=== PATIENT | female | born 1950 | race Caucasian/White ===

== ENCOUNTER 2017-06-24 15:43 | Inpatient (IN) | payer OTHER, MEDICARE ==
--- OUTSIDE RECORDS SUMMARY | 2017-06-24 16:07 | XMS REPORT ---
:1950 External Reference #:[id number] Author Organization [facility] Address [address] [place] [address] Phone [phone] Care Team Providers Name Role Phone Valentin Arango M.D. 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 Cigarette Use Never Smoked Cigarettes Allergies, Adverse Reactions, Alerts Date Description Reaction Status Severity Comments 04/03/2015 Bee Sting active anaphlactic, yellow jacket 04/03/2015 Penicillin active hives Medications Medication Date Status Form Strength Qnty SIG Indications Ordering Provider Clindagel 11/04 Active Gel 1% 30G apply to L03.319 affected Arango, area twice M.D. 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 Nba, ben Eastman.Con immediately to md office for administrat ion unless administere d at pharmacy Levothyroxine Active Tablets 100mcg 1 by mouth Unknown Sodium /0000 every day Cetirizine HCL Active Tablets 10mg 1 by mouth Unknown /0000 every day prn Immunizations CPT Code Status Date Vaccine Lot # 57043 Given 03/10/2017 [place] [address] Given 11/05/2015 Influenza Virus Vaccine, Quadrivalent, 3 Yr > [id number] Quad, Preserv Free 12210 Given 04/03/2015 Tdap (Adacel) [id number] Vital Signs Date Vital Result Comment 06/24/2017 Weight 137.00 lb Weight in kg's 62.143 BP Systolic 130 mmHg BP Diastolic 80 mmHg Heart Rate 80 /min Body Temperature 98.5 F Respiratory Rate 16 /min O2 % BldC Oximetry 97 % 11/05/2015 Weight 142.00 lb Weight in kg's 64.411 BP Systolic 132 mmHg BP Diastolic 75 mmHg Heart Rate 84 /min Body Temperature 99.5 F 09/23/2015 Weight 140.00 lb Weight in kg's 63.504 BP Systolic 125 mmHg BP Diastolic 77 mmHg Heart Rate 88 /min 09/19/2015 Weight 142.00 lb Weight in kg's 64.411 BP Systolic 164 mmHg BP Diastolic 85 mmHg Heart Rate 80 /min O2 % BldC Oximetry 97 % 05/08/2015 Weight 135.00 lb Weight in kg's 61.236 BP Systolic 128 mmHg BP Diastolic 76 mmHg Heart Rate 76 /min 04/03/2015 Weight 134.00 lb Weight in kg's 60.782 BP Systolic 140 mmHg BP Diastolic 90 mmHg Heart Rate 68 /min Height 61 inches 5'1" BMI (Body Mass Index) 25.3 kg/m2 Results Test Date Test Result H/L Range Note Laboratory test finding 05/08/2015 Cytology SEE RESULT BELOW 1 HPV Rna Ww/Reflex Genotype Negative Negative 2 Laboratory test finding 04/03/2015 TSH (Thyroid Stim Horm) 2.91 ?IU/mL 0.34-5.60 CBC Auto Diff 04/03/2015 White Blood Count 5.2 10^3/uL 3.5-10.8 Red Blood Count 4.74 10^6/uL 4.0-5.4 Hemoglobin 14.2 g/dL 12.0-16.0 Hematocrit 44 % 35-47 Mean Corpuscular Volume 94 fL 80-97 Mean Corpuscular Hemoglobin 30 pg 27-31 Mean Corpuscular HGB Conc 32 g/dL 31-36 Red Cell Distribution Width 14 % 10.5-15 Platelet Count 239 10^3/uL 150-450 Mean Platelet Volume 9 um3 7.4-10.4 Abs Neutrophils 3.1 10^3/uL 1.5-7.7 Abs Lymphocytes 1.7 10^3/uL 1.0-4.8 Abs Monocytes 0.3 10^3/uL 0-0.8 Abs Eosinophils 0.1 10^3/uL 0-0.6 Abs Basophils 0 10^3/uL 0-0.2 Abs Nucleated RBC 0 10^3/uL Granulocyte % 59.2 % 38-83 Lymphocyte % 33.4 % 25-47 Monocyte % 4.8 % 1-9 Eosinophil % 1.9 % 0-6 Basophil % 0.7 % 0-2 Nucleated Red Blood Cells % 0 Comp Metabolic Panel 04/03/2015 Sodium 137 mmol/L 133-145 Potassium 3.9 mmol/L 3.5-5.0 Chloride 102 mmol/L 101-111 Co2 Carbon Dioxide 28 mmol/L 22-32 Anion Gap 7 mmol/L 2-11 Glucose 85 mg/dL 70-100 Blood Urea Nitrogen 18 mg/dL 6-24 Creatinine 0.99 mg/dL High 0.51-0.95 BUN/Creatinine Ratio 18.2 8-20 Calcium 9.9 mg/dL 8.6-10.3 Total Protein 6.9 g/dL 6.4-8.9 Albumin 4.5 g/dL 3.2-5.2 Globulin 2.4 g/dL 2-4 Albumin/Globulin Ratio 1.9 1-3 Total Bilirubin 0.50 mg/dL 0.2-1.0 Alkaline Phosphatase 82 U/L 34-104 Alt 18 U/L 7-52 Ast 23 U/L 13-39 Egfr Non- 56.7 >60 Egfr 72.9 >60 3 Laboratory test finding 04/03/2015 T3 Total 0.78 ng/mL Low 0.87-1.78 Free T4 (Free Thyroxine) 0.87 ng/dL 0.61-1.12 1 SEE RESULT BELOW Name: LUDWIG HERNÁNDEZ : [address]: Valentin Arango MD Acct: [id number] Unit: [id number] AGE: 65 Location: [facility] Re05/08/15 SEX: F Status: REG REF SPEC: [id number] STONEY: 05/08/15-[address] [facility] [address]: Valentin Arango MD REQ: [id number] RECD: 05/08/15 STATUS: SOUT _ ORDERED: IMAGE ANALYSIS, HPV/Thin Prep, HPV 16/18 GENE FINAL DIAGNOSIS Negative for Intraepithelial lesion or Malignancy A. Ectocervical/Endocervical Specimen Adequacy: Satisfactory of evaluation Transformation zone component cannot be definitely identified due to presence of atrophy or other hormonal changes Patient Information: HPV: High risk HPV RNA testing regardless of pap results. HPV 16/18 Genotype for HPV pos Actual Specimen Date: 05/08/15 Post Menopausal?: Y Date Time Test Result Flag (u) Normal Range 05/08/15 1517 HPV RNA RFLX GE Negative Negative The high-risk HPV types detected by the assay include: 16, 18, 31, 33, 35, 39, 45, 51, 52, 56, 58, 59, 66, and 68. Signed (signature on file) GREG Craig([facility]) 05/08 1523 This Pap test was evaluated with the assistance of the [employer] Group[employer] Test Imaging System. Due to cytologic findings at the veneer clipper microscope, comprehensive manual rescreening by a Facilities Engineer may be required. The Pap Smear is a screening test designed to aid in the detection of premalignant and malignant conditions of the uterine cervix. It is not a diagnostic procedure and should not be used as the sole means of detecting cervical cancer. Both false- positive and false- negative reports do occur. Depending on your risk status, a Pap smear should be obtained and evaluated every 1-3 years. END OF REPORT * ML=Testing performed at Main Lab DEPARTMENT OF PATHOLOGY, [address] [place] [address] Amos Guerra M.D. Director [facility] # [id number] 2 The high-risk HPV types detected by the assay include: 16, 18, 31, 33, 35, 39, 45, 51, 52, 56, 58, 59, 66, and 68. 3 Because ethnic data is not always readily available, this report includes an eGFR for both -Americans and non- Americans. The National Kidney Disease Education Program (NKDEP) does not endorse the use of the MDRD equation for patients that are not between the ages of 18 and 70, are , have extremes of body size, muscle mass, or nutritional status, or are non- or non-. According to the National Kidney Foundation, irrespective of diagnosis, the stage of the disease is based on the level of kidney function: Stage Description GFR(mL/min/1.73 m(2)) 1 Kidney damage with normal or decreased GFR 90 2 Kidney damage with mild decrease in GFR 60-89 3 Moderate decrease in GFR 30-59 4 Severe decrease in GFR 15-29 5 Kidney failure <15 (or dialysis) Procedures Date CPT Code Description Status 09/23/2015 61973 Removal-Impacted Cerumen Completed Encounters Type Date Location Provider CPT E/M Dx Office Visit 11/05/2015 2:30p Main Office Valentin Arango M.D. 75994 L03.319 Z23 Office Visit 09/19/2015 9:15a [place] [address] H61.22 H81.01 Office Visit 05/08/2015 9:30a Main Office Valentin Arango M.D. 96656 Z12.4 E03.9 Office Visit 04/03/2015 10:45a Main Office Valentin Arango M.D. 89653 E03.9 Z23 Plan of Care 06/24/2017 - DENEEN Alvarado52 HeadacheComments:2 days of worsening severe SAMUELS with bad neck stiffness.She has no fever, but reportedly she does not get fevers.Given that she is not severely ill or septic as well as being on antibiotics for several days she is less likely to have bacterial meningitis. Aseptic or Lyme meningitis seems more likely especially given her recent pharyngitis. Still, with clinical concern for meningitis at all we need an ED consult.
[2017-06-24 19:03] LABS: ABS Basophils 0 10^3/ul (0-0.2); ABS Eosinophils 0 10^3/ul (0-0.6); ABS Lymphocytes 0.8 10^3/ul (1.0-4.8); ABS Monocytes 0.8 10^3/ul (0-0.8); ABS Nucleated RBC 0 10^3/ul; Eosinophil % 0 % (0-6); Hematocrit 43 % (35-47); Hemoglobin 14.2 g/dl (12.0-16.0); Lymphocyte % 5.6 % (25-47); Mean Corpuscular HGB Conc 33 g/dl (31-36); Mean Corpuscular Hemoglobin 29 pg (27-31); Mean Corpuscular Volume 88 fL (80-97); Mean Platelet Volume 7.7 um3 (7.4-10.4); Nucleated Red Blood Cells % 0; Platelet Count 223 10^3/ul (150-450); Red Blood Count 4.87 10^6/ul (4.0-5.4); Red Cell Distribution Width 13 % (10.5-15); White Blood Count 13.6 10^3/ul (3.5-10.8)
[2017-06-24 19:27] LABS: EGFR Non-African American 68.8 (>60)
--- NOTE | 2017-06-24 21:30 | RAD ---
INDICATION: Headache COMPARISON: None TECHNIQUE: Noncontrast axial source images were acquired from the skull base to the vertex. FINDINGS: Ventricles/sulci: The ventricles and cisterns are normal in size and configuration for age. Brain parenchyma: There is no focal parenchymal finding, evidence of intracranial mass, or intracranial mass effect. Intracranial hemorrhage:None. Extra-axial spaces: There are no abnormal extra axial fluid collections or evidence of extra-axial mass. Calvarium: There is no calvarial fracture or other calvarial abnormality. Scalp: There is no evidence of scalp or extracalvarial soft tissue abnormality. Paranasal sinuses/mastoid: The paranasal sinuses and mastoid air cells are clear. Other: None. IMPRESSION: NO ACUTE INTRACRANIAL FINDINGS
[2017-06-24] MEDS ORDERED: Lidocaine 2% EPI 1:200000 MPF*10-20 ML VIAL ONE (22:57)
[2017-06-24] MEDS ORDERED: Acetaminophen TAB* 325 MG PO ONE (23:17)
[2017-06-24] MEDS ORDERED: Vancomycin(*) 1,000 MG in NS 0.9% 250 ML* 250 ML IVPB ONE (23:44)
[2017-06-24] MEDS ORDERED: cefTRIAXone(*) 2 GM in NS 0.9% 100 ML* 100 ML IVPB ONE (23:45)
--- NOTE | 2017-06-25 00:25 | HP ---
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 She did not really improve and in fact was gradually worsening with the onset Tuesday of malaise & fatigue. Tuesday she began having a headache progressing to include posterior neck pain with movement Tuesday for which she took 6 doses of clindamycin 150mg Q6H. Despite this she began developing F/C, nausea with dry heaves, & decreased appetite prompting her to present for evaluation which has revealed CSF with WBCs of >1000, a low glucose of 33, and elevated protein most consistent with partially treated bacterial meningitis. She was initiated on IV vancomycin, ceftriaxone, & acylovir while cultures grow. 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 FamHx: Mother: alive at 95 with end-stage dementia; Father: passed at 84 2nd unknown cause ROS: as above, otherwise reviewed and all were negative vitals: Vital Signs Temp 38.5 C 06/25/17 03:18 Pulse 70 06/25/17 03:18 Resp 16 06/25/17 03:18 BP 133/74 06/25/17 03:18 Pulse Ox 96 06/25/17 03:18 Intake & Output 06/24/17 06/24/17 06/25/17 11:59 23:59 11:59 Output Total 800 Balance -800 Weight 62.142 kg 59.92 kg Output: Urine 800 Constitutional: NAD, normally developed, well-nourished white female HEENM: atraumatic; sclera/conjunctiva: anicteric/clear; hearing: clinically intact; oropharynx: clear, mucosa moist Neck: soft tissue: positive nuchal rigidity; thyroid: surgically absent Pulmonary: clear to auscultation bilaterally, good aeration, no accessory muscle use CV: RR/RR, normal S1S2, no carotid bruit, no jugular venous distention, 2+ B DP/ PT, no edema Abdominal: soft, non-distended, non-tender, no rebound/guarding/rigidity, normoactive bowel sounds, no hepatosplenomegaly or masses, no costovertebral angle tenderness Musculoskeletal: general: grossly intact; gait: stable Integumental: normal appearance and texture of exposed skin Psychiatric orientation: AA&O to PPS affect: calm mood: cooperative eye contact: good content: reliable responses: timely insight: fair Testing: Lab Results 06/24/17 06/24/17 06/24/17 Range/Units 18:46 18:46 18:47 WBC 13.6 H (3.5-10.8) 10^3/ul RBC 4.87 (4.0-5.4) 10^6/ul Hgb 14.2 (12.0-16.0) g/dl Hct 43 (35-47) % MCV 88 (80-97) fL MCH 29 (27-31) pg MCHC 33 (31-36) g/dl RDW 13 (10.5-15) % Plt Count 223 (150-450) 10^3/ul MPV 7.7 (7.4-10.4) um3 Neut % (Auto) 88.5 H (38-83) % Lymph % (Auto) 5.6 L (25-47) % Piute % (Auto) 5.7 (0-7) % Eos % (Auto) 0 (0-6) % Baso % (Auto) 0.2 (0-2) % Absolute Neuts (auto) 12.0 H (1.5-7.7) 10^3/ul Absolute Lymphs (auto) 0.8 L (1.0-4.8) 10^3/ul Absolute Monos (auto) 0.8 (0-0.8) 10^3/ul Absolute Eos (auto) 0 (0-0.6) 10^3/ul Absolute Basos (auto) 0 (0-0.2) 10^3/ul Absolute Nucleated RBC 0 10^3/ul Nucleated RBC % 0 Sodium 129 L (139-145) mmol/L Potassium 3.7 (3.5-5.0) mmol/L Chloride 93 L (101-111) mmol/L Carbon Dioxide 26 (22-32) mmol/L Anion Gap 10 (2-11) mmol/L BUN 13 (6-24) mg/dL Creatinine 0.83 (0.51-0.95) mg/dL Est GFR ( Amer) 88.5 (>60) Est GFR (Non-Af Amer) 68.8 (>60) BUN/Creatinine Ratio 15.7 (8-20) Glucose 135 H (70-100) mg/dL Lactic Acid 1.1 (0.5-2.0) mmol/L Calcium 10.0 (8.6-10.3) mg/dL Total Bilirubin 1.30 H (0.2-1.0) mg/dL AST 18 (13-39) U/L ALT 15 (7-52) U/L Alkaline Phosphatase 86 (34-104) U/L C-Reactive Protein 109.73 H (< 5.00) mg/L Total Protein 8.6 (6.4-8.9) g/dL Albumin 4.7 (3.2-5.2) g/dL Globulin 3.9 (2-4) g/dL Albumin/Globulin Ratio 1.2 (1-3) Fluid Source Fluid Volume mL Fluid Color Fluid Appearance Fluid WBC /mcL Fluid RBC /mcL Fluid Tot Cell Count Fluid Neutrophils % Fluid Lymphocytes % Fluid Cell Count Rvw By CSF Cell Count Tube # CSF Glucose (40-70) mg/dL CSF Total Protein (15-45) mg/dL Influenza A (Rapid) (Negative) Influenza B (Rapid) (Negative) 06/25/17 06/25/17 06/25/17 Range/Units 00:47 00:47 01:21 WBC (3.5-10.8) 10^3/ul RBC (4.0-5.4) 10^6/ul Hgb (12.0-16.0) g/dl Hct (35-47) % MCV (80-97) fL MCH (27-31) pg MCHC (31-36) g/dl RDW (10.5-15) % Plt Count (150-450) 10^3/ul MPV (7.4-10.4) um3 Neut % (Auto) (38-83) % Lymph % (Auto) (25-47) % Piute % (Auto) (0-7) % Eos % (Auto) (0-6) % Baso % (Auto) (0-2) % Absolute Neuts (auto) (1.5-7.7) 10^3/ul Absolute Lymphs (auto) (1.0-4.8) 10^3/ul Absolute Monos (auto) (0-0.8) 10^3/ul Absolute Eos (auto) (0-0.6) 10^3/ul Absolute Basos (auto) (0-0.2) 10^3/ul Absolute Nucleated RBC 10^3/ul Nucleated RBC % Sodium (139-145) mmol/L Potassium (3.5-5.0) mmol/L Chloride (101-111) mmol/L Carbon Dioxide (22-32) mmol/L Anion Gap (2-11) mmol/L BUN (6-24) mg/dL Creatinine (0.51-0.95) mg/dL Est GFR ( Amer) (>60) Est GFR (Non-Af Amer) (>60) BUN/Creatinine Ratio (8-20) Glucose (70-100) mg/dL Lactic Acid (0.5-2.0) mmol/L Calcium (8.6-10.3) mg/dL Total Bilirubin (0.2-1.0) mg/dL AST (13-39) U/L ALT (7-52) U/L Alkaline Phosphatase (34-104) U/L C-Reactive Protein (< 5.00) mg/L Total Protein (6.4-8.9) g/dL Albumin (3.2-5.2) g/dL Globulin (2-4) g/dL Albumin/Globulin Ratio (1-3) Fluid Source Cerebral spinal Fluid Volume 0.5 mL Fluid Color Colorless Fluid Appearance Cloudy Fluid WBC 1031 H* /mcL Fluid RBC 79 /mcL Fluid Tot Cell Count 100 Fluid Neutrophils 84 % Fluid Lymphocytes 16 % Fluid Cell Count Rvw By Pending CSF Cell Count Tube # 4 CSF Glucose 33 L (40-70) mg/dL CSF Total Protein 97 H (15-45) mg/dL Influenza A (Rapid) Negative (Negative) Influenza B (Rapid) Negative (Negative) CT brain WO , personally reviewed: IMPRESSION: NO ACUTE INTRACRANIAL FINDINGS 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
[2017-06-25] MEDS ORDERED: CMCS: Melatonin (NF) 3 MG TAB PO PRN (00:28)
[2017-06-25] MEDS ORDERED: Vancomycin per Pharmacy* NOTE FOLLOW UP SCH (01:00)
[2017-06-25] MEDS: Acyclovir IV(*) 600 MG in NS 0.9% 100 ML* 100 ML IVPB SCH ×2 (03:32→10:05)
[2017-06-25] MEDS: NS 0.9% 1000 ML* 1,000 ML IV SCH ×2 (03:32→20:56)
--- NOTE | 2017-06-25 06:15 | ED ---
May Otero Emily, scribed for Yoav Holloway MD on 06/24/17 at 2242 . HPI Febrile Illness - HPI Summary HPI Summary: This patient is a 67 year old F [facility] accompanied by with a chief complaint of headache that began 2 days ago. The patient rates the pain 8/10 in severity. Symptoms aggravated by nothing. Symptoms alleviated by nothing. Patient reports headache, fever, stiff neck, decreased appetite, and sore throat (began 10 days ago and resolved a few days ago). Patient denies SOB , back pain, urinary symptoms, bowel symptoms, abd pain, and vomiting. Pt denies any recent travel or exposure to anything abnormal at work. - History of Current Complaint Chief Complaint: EDHeadache Time Seen by Provider: 06/24/17 22:30 Hx Obtained From: Patient Onset/Duration: Started Days Ago, Still Present Timing: Constant, Lasting Days Initial Severity: Moderate Current Severity: Moderate Pain Intensity: 8 Pain Scale Used: 0-10 Numeric Aggravating Factors: Nothing Alleviating Factors: Nothing Associated Signs and Symptoms: Other: - Positive headache, fever, stiff neck, decreased appetite, and sore throat (began 10 days ago and resolved a few days ago). Negative SOB, back pain, urinary symptoms, bowel symptoms, abd pain, and vomiting - Allergy/Home Medications Allergies/Adverse Reactions: Allergies Allergy/AdvReac Type Severity Reaction Status Date / Time Penicillins Allergy Hives Verified 06/24/17 15:49 shellfish derived Allergy Vomiting Verified 06/24/17 15:49 Home Medications: Home Medications Levothyroxine TAB* [Synthroid TAB*] 100 mcg PO DAILY 06/25/17 [History Confirmed 06/25/17] PMH/Surg Hx/FS Hx/Imm Hx Previously Healthy: No Opthamlomology History: Denies: Hx Legally Blind EENT History: Denies: Hx Deafness - Cancer History Cancer Type, Location and Year: Thyroid cancer Hx Chemotherapy: No Hx Radiation Therapy: No Infectious Disease History: No Infectious Disease History: Denies: Traveled Outside the [place] in Last 30 Days - Family History Known Family History: Positive: Other - Positive breast CA - Social History Occupation: Employed Full-time Lives: With Family Hx Substance Use: No Substance Use Type: Reports: None Hx Tobacco Use: No Smoking Status (MU): Never Smoked Tobacco Review of Systems Positive: Fever Positive: Sore Throat Negative: Shortness Of Breath Positive: Other - Positive decreased appetite. Negative bowel symptoms. Negative: Abdominal Pain, Vomiting Genitourinary: Negative Positive: Other - Positive stiff neck. Negative back pain Positive: Headache All Other Systems Reviewed And Are Negative: Yes Physical Exam - Summary Physical Exam Summary: Appearance: Well-appearing, Well-nourished, lying in bed comfortably Skin: Warm, dry, no obvious rash Eyes: sclera anicteric, no conjunctiva pallor ENT: mucous membranes moist, pharynx appears normal Neck: Meningismus, could not flex her neck very well, has pain with neck flexion Respiratory: Clear to auscultation, no signs of respiratory distress Cardiovascular: Normal S1, S2. No murmurs. Normal distal pulses in tibial and radial bilaterally. Abdomen: Soft, nontender, normal active bowel sounds present Musculoskeletal: Normal, Strength/ROM Intact Neurological: A&Ox3, awake and alert, mentation is normal, speech is fluent and appropriate Psychiatric: affect is normal, does not appear anxious or depressed Triage Information Reviewed: Yes Vital Signs On Initial Exam: Initial Vitals Temp Pulse Resp BP Pulse Ox 98.3 F 77 16 160/87 100 06/24/17 15:49 06/24/17 15:49 06/24/17 15:49 06/24/17 15:49 06/24/17 15:49 Vital Signs Reviewed: Yes Procedures - Lumbar Puncture Procedural Sedation: none Position: Lateral Decubitus Aseptic Technique: Lidocaine Anesthesia Used: 1.0% Lido Spinal Needle Used: 22 Gauge Lumbar Puncture Note: approx 5 ml cloudy csf drained without difficulty Diagnostics - Vital Signs Vital Signs Temp Pulse Resp BP Pulse Ox 06/24/17 21:52 99.6 F 84 16 159/91 95 06/24/17 19:51 99.7 F 88 20 169/82 98 06/24/17 17:57 99 F 95 16 165/86 100 06/24/17 15:49 98.3 F 77 16 160/87 100 - Laboratory Lab Results: Lab Results 06/24/17 06/24/17 06/24/17 Range/Units 18:46 18:46 18:47 WBC 13.6 H (3.5-10.8) 10^3/ul RBC 4.87 (4.0-5.4) 10^6/ul Hgb 14.2 (12.0-16.0) g/dl Hct 43 (35-47) % MCV 88 (80-97) fL MCH 29 (27-31) pg MCHC 33 (31-36) g/dl RDW 13 (10.5-15) % Plt Count 223 (150-450) 10^3/ul MPV 7.7 (7.4-10.4) um3 Neut % (Auto) 88.5 H (38-83) % Lymph % (Auto) 5.6 L (25-47) % Ripley % (Auto) 5.7 (0-7) % Eos % (Auto) 0 (0-6) % Baso % (Auto) 0.2 (0-2) % Absolute Neuts (auto) 12.0 H (1.5-7.7) 10^3/ul Absolute Lymphs (auto) 0.8 L (1.0-4.8) 10^3/ul Absolute Monos (auto) 0.8 (0-0.8) 10^3/ul Absolute Eos (auto) 0 (0-0.6) 10^3/ul Absolute Basos (auto) 0 (0-0.2) 10^3/ul Absolute Nucleated RBC 0 10^3/ul Nucleated RBC % 0 Sodium 129 L (139-145) mmol/L Potassium 3.7 (3.5-5.0) mmol/L Chloride 93 L (101-111) mmol/L Carbon Dioxide 26 (22-32) mmol/L Anion Gap 10 (2-11) mmol/L BUN 13 (6-24) mg/dL Creatinine 0.83 (0.51-0.95) mg/dL Est GFR ( Amer) 88.5 (>60) Est GFR (Non-Af Amer) 68.8 (>60) BUN/Creatinine Ratio 15.7 (8-20) Glucose 135 H (70-100) mg/dL Lactic Acid 1.1 (0.5-2.0) mmol/L Calcium 10.0 (8.6-10.3) mg/dL Total Bilirubin 1.30 H (0.2-1.0) mg/dL AST 18 (13-39) U/L ALT 15 (7-52) U/L Alkaline Phosphatase 86 (34-104) U/L C-Reactive Protein 109.73 H (< 5.00) mg/L Total Protein 8.6 (6.4-8.9) g/dL Albumin 4.7 (3.2-5.2) g/dL Globulin 3.9 (2-4) g/dL Albumin/Globulin Ratio 1.2 (1-3) Result Diagrams: 06/24/17 18:46 06/24/17 18:46 Lab Statement: Any lab studies that have been ordered have been reviewed, and results considered in the medical decision making process. - CT Brain CT CT Interpretation Completed By: Radiologist - Brain CT reveals, per radiologist , no acute intracranial findings. Course/Dx - Febrile Illness Differential Diagnoses: Encephalitis, Meningitis, Neoplasm - Diagnoses Provider Diagnoses: Meningitis - Provider Notifications Discussed Care Of Patient With: Ryan Smith Time Discussed With Above Provider: 00:15 Instructed by Provider To: Admit As Inpatient - Consult with Dr. Smith ( hospitalist) at 0015. He agrees to admit pt for further evaluation. Discharge - Sign-Out/Discharge Documenting (check all that apply): Discharge/Admit/Transfer - Discharge Plan Condition: Guarded Disposition: ADMITTED TO [facility] - Billing Disposition and Condition Condition: GUARDED Disposition: HOSP-[facility] The documentation as recorded by the May paige Emily accurately reflects the service I personally performed and the decisions made by me, Yoav Holloway MD.
[2017-06-25] MEDS: Levothyroxine TAB* 100 MCG TAB PO SCH (06:22)
[2017-06-25] MEDS: Omeprazole CAP* 20 MG PO SCH (06:22)
[2017-06-25 06:50] LABS: ABS Basophils 0 10^3/ul (0-0.2); ABS Eosinophils 0 10^3/ul (0-0.6); ABS Lymphocytes 1.5 10^3/ul (1.0-4.8); ABS Monocytes 1.2 10^3/ul (0-0.8); ABS Neutrophils 7.4 10^3/ul (1.5-7.7); ABS Nucleated RBC 0 10^3/ul; Eosinophil % 0 % (0-6); Hematocrit 38 % (35-47); Lymphocyte % 14.5 % (25-47); Mean Corpuscular HGB Conc 34 g/dl (31-36); Mean Corpuscular Hemoglobin 30 pg (27-31); Mean Corpuscular Volume 87 fL (80-97); Nucleated Red Blood Cells % 0; Platelet Count 202 10^3/ul (150-450); Red Blood Count 4.34 10^6/ul (4.0-5.4); Red Cell Distribution Width 13 % (10.5-15); White Blood Count 10.1 10^3/ul (3.5-10.8)
[2017-06-25 07:09] LABS: EGFR Non-African American 78.5 (>60)
[2017-06-25] MEDS: Docusate CAP* 100 MG PO SCH ×2 (07:46→21:03)
[2017-06-25] MEDS: Acetaminophen TAB* 325 MG PO PRN ×3 (07:46→21:03)
[2017-06-25] MEDS ORDERED: Vancomycin(*) 1,000 MG in NS 0.9% 250 ML* 250 ML IVPB SCH (14:00)
[2017-06-25] MEDS: Ondansetron 40 MG VIAL* 2 MG/ML 20 ML VIAL IV PRN ×2 (14:45→22:39)
--- NOTE | 2017-06-25 17:41 | PN ---
Hospitalist Progress Note Date of Service: 06/25/17 Pt seen and examined. Meds and labs reviewed. ROS: Denied SAMUELS/dizziness, F/C, N/V, CP, SOB, increased cough, sputum production , abd pain, diarrhea, constipation, dysuria, myalgias, arthralgias, throat pain , and new skin lesions. The rest of the 14 point ROS are unremarkable. PHYSICAL EXAM: GEN APPEARANCE: Awake, not in acute distress HEENT: NC/AT, PERRLA, moist oral mucosa, (-) throat erythema NECK: Soft, supple, (-) cervical LAD, (-)JVD HEART: S1S2 WNL, RRR, No MRG CHEST: CTA, BL, GAE, No W/R/R ABD: Soft, ND/NT, NABS 4x Q EXT: No C/C/E SKIN: Warm to touch PSYCH: No active psychosis, hallucinations, depression, SI/HI ASSESSMENT AND PLAN: #Bacterial Meningitis: -Touched base with Dr. Guzman this AM and given her rather benign course, unlikely due to Nesseria spp, hence, Rocephin decreased to 1 g from 2 g, D/Cd Vanco and Acyclovir -However, subsequent gram stain of aerobic bottle shows: Gram negative coccobacilli and given this may be consistent with Nesseria spp, informed Dr. Guzman who agrees that Rocephin be increased to 2g per day until speciated #Hypothyroidism: -Continue Levothyroxine -Check TSH #GERD: -Continue Omeprazole #Insomnia: -Continue Melatonin
--- NOTE | 2017-06-25 20:48 | CONS ---
CONSULTATION REPORT: DATE OF CONSULT: 06/25/17 REQUESTING PHYSICIAN: Dr. Green. REASON FOR CONSULT: Meningitis. IMPRESSION: 1. Meningitis, most likely bacterial, 1000 white cells, elevated protein, moderately low glucose in spinal fluid. Could be partially treated pneumococcal or Haemophilus meningitis as she had initially what seemed to be a frontal sinusitis for which she took Keflex for few days. In that case, we may expect the Gram stain and culture to be false negatives. Differential diagnosis includes staphylococcus, which is unlikely because she has had no surgery or trauma to her skull. Meningococcal meningitis unlikely given her rapid improvement; however, still a consideration. This time of the year, Borrelia burgdorferi meningitis is always a consideration, which could have similar spinal fluid profile. Her rapid improvement also makes me suspect that a little bit. Other tick-borne infections this time of the year [place] are more of an encephalitis, though meningitis is possible. Non-tick- borne and other arthropod-borne include West Nile seems less likely since we are not into mosquito season yet. 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 Differential diagnosis includes viral organisms like herpes simplex virus or varicella, which are both self-limited. 2. PENICILLIN intolerance, though tolerating cephalosporins well. RECOMMENDATIONS: Ceftriaxone, we will increase to 1 g twice a day. We will add a Lyme antibody. Assuming all is negative, we will need to treat her empirically for pneumococcal or Haemophilus meningitis for 2 weeks with ceftriaxone. If it is a Lyme, we will consider changing to oral doxycycline. I will stop her vancomycin. 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 Last week, she developed facial pain, purulent nasal discharge and fever and chills and then a sore throat. She started taking Keflex for a few days, but her symptoms seemed to get worse including body aches , chills, sweats, so she took clindamycin without improvement. Because of progression of severe headache and some neck stiffness with minimal photophobia , she came to the emergency room yesterday. A CT of the brain was unremarkable. Lumbar puncture was obtained that showed 1000 white cells, glucose 33, protein 97, Gram stain showed no organisms, and cultures pending. She had a fever this morning. Her headache is much improved today. She has been on vancomycin, ceftriaxone and acyclovir overnight. She notes no new oral or vaginal ulcers. She had an influenza PCR that was negative. She has had no cough, trouble breathing, belly pain, nausea, vomiting, diarrhea, rash, or joint pain. Today, she is left with a mild headache, some chills this morning. Her appetite is picking up. She has been up walking around and feeling more energetic. PAST MEDICAL HISTORY: 1. Hypothyroidism after a thyroidectomy for cancer. 2. Right total knee arthroplasty. MEDICATIONS: 1. Tylenol. 2. Docusate. 3. Levothyroxine. 4. Melatonin. 5. Omeprazole. 6. Ceftriaxone 1 g a day. 7. Vancomycin 1 g every 12 hours. ALLERGIES: PENICILLIN. FAMILY HISTORY: No recurrent infections or tuberculosis. SOCIAL HISTORY: She lives in [place] with her . 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 No travel. REVIEW OF SYSTEMS: A 14-point review of systems is all negative except as noted above. PHYSICAL EXAM: Vital Signs: Temperature is 37, heart rate 70, respiratory rate 18, blood pressure 140/70, and oxygen saturation 97% on room air. In general, she is awake, not in distress. Neurologic: She is oriented x3. Follows all commands. Cranial nerves II through XII are intact. Strength is 5/ 5 in the biceps, triceps, wrist flexor and extensor, quadriceps, tibialis anterior and gastrocnemius bilaterally. Sensation in intact to light touch in the upper and lower extremities. Lymph Nodes: There is no cervical, supraclavicular, inguinal, axillary, or epitrochlear lymphadenopathy. Heart has regular rate and rhythm without murmurs, rubs, or gallops. Lungs are clear to auscultation bilaterally. Abdomen: Soft, nontender, nondistended. There are bowel sounds present. Skin: There is no rash or splinter hemorrhages. Musculoskeletal: No spine tenderness to palpation. No joint synovitis. LABORATORY DATA: White blood cell count 10, hemoglobin 13, platelets 202. Creatinine 0.7. CRP 110. Please see impressions and recommendations as outlined above, which I discussed with Dr. Green. Thank you for asking me to see Ms. Kamryn in consultation. [id number]/[facility] #: [id number] [place]
[2017-06-25] MEDS ORDERED: cefTRIAXone VIAL(*) 1,000 MG in NS 0.9% 50 ML* 50 ML IVPB SCH (21:00)
[2017-06-25] MEDS: cefTRIAXone VIAL(*) 2,000 MG in NS 0.9% 50 ML* 50 ML IVPB SCH (21:05)
[2017-06-26] MEDS ORDERED: cefTRIAXone VIAL(*) 1,000 MG in NS 0.9% 50 ML* 50 ML IVPB SCH (00:01)
[2017-06-26] MEDS: Acetaminophen TAB* 325 MG PO PRN ×3 (03:06→22:36)
[2017-06-26] MEDS: Omeprazole CAP* 20 MG PO SCH (05:31)
[2017-06-26] MEDS: Levothyroxine TAB* 100 MCG TAB PO SCH (05:31)
[2017-06-26 07:18] LABS: EGFR Non-African American 76.1 (>60)
[2017-06-26 08:04] LABS: ABS Basophils 0 10^3/ul (0-0.2); ABS Eosinophils 0.1 10^3/ul (0-0.6); ABS Lymphocytes 1.6 10^3/ul (1.0-4.8); ABS Monocytes 0.6 10^3/ul (0-0.8); ABS Neutrophils 3.5 10^3/ul (1.5-7.7); ABS Nucleated RBC 0 10^3/ul; Eosinophil % 0.9 % (0-6); Hematocrit 39 % (35-47); Hemoglobin 12.9 g/dl (12.0-16.0); Lymphocyte % 28.1 % (25-47); Mean Corpuscular HGB Conc 34 g/dl (31-36); Mean Corpuscular Hemoglobin 30 pg (27-31); Mean Corpuscular Volume 88 fL (80-97); Mean Platelet Volume 8.1 um3 (7.4-10.4); Nucleated Red Blood Cells % 0; Platelet Count 212 10^3/ul (150-450); Red Blood Count 4.36 10^6/ul (4.0-5.4); Red Cell Distribution Width 13 % (10.5-15); White Blood Count 5.8 10^3/ul (3.5-10.8)
[2017-06-26] MEDS: Docusate CAP* 100 MG PO SCH ×2 (08:37→21:26)
[2017-06-26] MEDS: cefTRIAXone VIAL(*) 2,000 MG in NS 0.9% 50 ML* 50 ML IVPB SCH ×2 (08:39→21:30)
[2017-06-26] MEDS ORDERED: Potassium Chlor TAB* 20 MEQ TAB.ER PO STA (08:53)
[2017-06-26] MEDS: NS 0.9% 1000 ML* 1,000 ML IV SCH (11:20)
[2017-06-26] MEDS ORDERED: Vancomycin Trough Check NOTE FOLLOW UP ONE (14:00)
--- NOTE | 2017-06-26 15:53 | PN ---
Hospitalist Progress Note Date of Service: 06/26/17 Pt seen and examined. Meds and labs reviewed. ROS: Denied SAMUELS/dizziness, F/C, N/V, CP, SOB, increased cough, sputum production , abd pain, diarrhea, constipation, dysuria, myalgias, arthralgias, throat pain , and new skin lesions. The rest of the 14 point ROS are unremarkable. PHYSICAL EXAM: GEN APPEARANCE: Awake, not in acute distress HEENT: NC/AT, PERRLA, moist oral mucosa, (-) throat erythema NECK: Soft, supple, (-) cervical LAD, (-)JVD HEART: S1S2 WNL, RRR, No MRG CHEST: CTA, BL, GAE, No W/R/R ABD: Soft, ND/NT, NABS 4x Q EXT: No C/C/E SKIN: Warm to touch PSYCH: No active psychosis, hallucinations, depression, SI/HI ASSESSMENT AND PLAN: #Bacterial Meningitis due to H. influenzae: -Touched base with Dr. Guzman this AM regarding species; continue course for nowbeta-lactamase of CSF sample will be re-tested in AM -Will await for sensitivity data #Hypothyroidism: -Continue Levothyroxine -Check TSH = 3.96, which is normal #GERD: -Continue Omeprazole #Insomnia: -Continue Melatonin #DVTp: -Continue SCDs #Dispo: -Will request PT to evaluate for D/C planning
[2017-06-26] MEDS: cefTRIAXone VIAL(*) 2,000 MG in NS 0.9% 100 ML* 100 ML IVPB SCH (21:26)
[2017-06-27] MEDS: NS 0.9% 1000 ML* 1,000 ML IV SCH ×2 (02:25→18:46)
[2017-06-27] MEDS: Acetaminophen TAB* 325 MG PO PRN ×2 (04:26→12:10)
[2017-06-27] MEDS: Omeprazole CAP* 20 MG PO SCH (04:27)
[2017-06-27] MEDS: Levothyroxine TAB* 100 MCG TAB PO SCH (05:29)
[2017-06-27 07:04] LABS: EGFR Non-African American 88.1 (>60)
[2017-06-27 07:19] LABS: ABS Basophils 0.1 10^3/ul (0-0.2); ABS Eosinophils 0.2 10^3/ul (0-0.6); ABS Lymphocytes 1.6 10^3/ul (1.0-4.8); ABS Monocytes 0.5 10^3/ul (0-0.8); ABS Neutrophils 2.7 10^3/ul (1.5-7.7); ABS Nucleated RBC 0 10^3/ul; Eosinophil % 3.2 % (0-6); Hematocrit 40 % (35-47); Hemoglobin 13.6 g/dl (12.0-16.0); Lymphocyte % 31.8 % (25-47); Mean Corpuscular HGB Conc 34 g/dl (31-36); Mean Corpuscular Hemoglobin 30 pg (27-31); Mean Corpuscular Volume 88 fL (80-97); Mean Platelet Volume 7.6 um3 (7.4-10.4); Nucleated Red Blood Cells % 0; Platelet Count 250 10^3/ul (150-450); Red Blood Count 4.59 10^6/ul (4.0-5.4); Red Cell Distribution Width 13 % (10.5-15)
[2017-06-27] MEDS ORDERED: Potassium Chlor TAB* 20 MEQ TAB.ER PO STA (08:20)
[2017-06-27] MEDS: Docusate CAP* 100 MG PO SCH ×2 (09:12→21:12)
[2017-06-27] MEDS: cefTRIAXone VIAL(*) 2,000 MG in NS 0.9% 100 ML* 100 ML IVPB SCH ×2 (09:13→21:12)
--- NOTE | 2017-06-27 09:31 | PN ---
Progress Note - Progress Note Date of Service: 06/27/17 SOAP: Subjective: CC: meningitis HPI: 67 year old woman with bacterial meningitis. Appetite and energy improved. Worsened right sided headache today, tylenol helps some. No hearing change, no fever, rash, or diarrhea. Objective: Vital Signs Temp 37.2 C 06/27/17 03:49 Pulse 74 06/27/17 03:49 Resp 18 06/27/17 03:49 BP 151/82 06/27/17 03:49 Pulse Ox 97 06/27/17 03:49 Intake & Output 06/26/17 06/27/17 06/27/17 18:59 06:59 18:59 Intake Total 965 2864 Output Total 800 3850 Balance 165 -986 Intake: IV Fluids 1794 NS (0.9%) 1794 IVPB 110 ABX - CEFTRIAXONE 110 Oral 965 960 Output: Urine 800 3850 Other: # Bowel Movements 1 0 Estimated Stool Amount Large # Voids 2 Gen:awake, no distress HEENT: no thrush Neuro: CN 2-12 intact Heart:RRR no murmur Lungs:CTA BL Abd:+BS NTND soft Skin: no rash MSK: No spine tenderness Neck:supple, no mass Laboratory Results - last 24 hr 06/26/17 06/27/17 06/27/17 14:07 06:30 06:30 WBC 5.0 RBC 4.59 Hgb 13.6 Hct 40 MCV 88 MCH 30 MCHC 34 RDW 13 Plt Count 250 MPV 7.6 Neut % (Auto) 53.9 Lymph % (Auto) 31.8 [place] % (Auto) 10.1 H Eos % (Auto) 3.2 Baso % (Auto) 1.0 Absolute Neuts (auto) 2.7 Absolute Lymphs (auto) 1.6 Absolute Monos (auto) 0.5 Absolute Eos (auto) 0.2 Absolute Basos (auto) 0.1 Absolute Nucleated RBC 0 Nucleated RBC % 0 Sodium 140 Potassium 3.4 L Chloride 106 Carbon Dioxide 26 Anion Gap 8 BUN 11 Creatinine 0.67 Est GFR ( Amer) 113.3 Est GFR (Non-Af Amer) 88.1 BUN/Creatinine Ratio 16.4 Glucose 100 Calcium 9.0 Magnesium 2.0 Total Bilirubin 0.40 AST 16 ALT 15 Alkaline Phosphatase 63 Total Protein 6.5 Albumin 3.4 Globulin 3.1 Albumin/Globulin Ratio 1.1 Vancomycin Trough 3.1 Assessment: 1. Haemophilus meningitis and bacteremia 2. headache due to #1 3. PCN allergy Plan: 1. ceftriaxone 2 gm IV Q12hrs day 04/16. Midline ordered. 35 minutes floor time >50% face to face in coordination of outpatient treatment
[2017-06-27] MEDS: Ondansetron 40 MG VIAL* 2 MG/ML 20 ML VIAL IV PRN (12:12)
--- NOTE | 2017-06-27 17:33 | PN ---
Hospitalist Progress Note Date of Service: 06/27/17 Pt seen and examined. Meds and labs reviewed. ROS: Complained of some SAMUELS improved by Tylenol. dizziness, F/C, N/V, CP, SOB, increased cough, sputum production, abd pain, diarrhea, constipation, dysuria, myalgias, arthralgias, throat pain, and new skin lesions. The rest of the 14 point ROS are unremarkable. PHYSICAL EXAM: GEN APPEARANCE: Awake, not in acute distress HEENT: NC/AT, PERRLA, moist oral mucosa, (-) throat erythema NECK: Soft, supple, (-) cervical LAD, (-)JVD HEART: S1S2 WNL, RRR, No MRG CHEST: CTA, BL, GAE, No W/R/R ABD: Soft, ND/NT, NABS 4x Q EXT: No C/C/E SKIN: Warm to touch PSYCH: No active psychosis, hallucinations, depression, SI/HI ASSESSMENT AND PLAN: #Bacterial Meningitis due to H. influenzae: -Appreciate Dr. Cho re-eval -Ceftriaxone 2 gm IV Q12hrs day 04/16. Midline ordered. Will defer #Hypothyroidism: -Continue Levothyroxine -Check TSH = 3.96, which is normal #GERD: -Continue Omeprazole #Insomnia: -Continue Melatonin #DVTp: -Continue SCDs #Dispo: -D/C home when ready
[2017-06-28] MEDS: Acetaminophen TAB* 325 MG PO PRN (05:12)
[2017-06-28] MEDS: Levothyroxine TAB* 100 MCG TAB PO SCH (05:13)
[2017-06-28] MEDS: Omeprazole CAP* 20 MG PO SCH (05:13)
[2017-06-28 07:14] LABS: ABS Basophils 0 10^3/ul (0-0.2); ABS Eosinophils 0.2 10^3/ul (0-0.6); ABS Lymphocytes 1.9 10^3/ul (1.0-4.8); ABS Monocytes 0.5 10^3/ul (0-0.8); ABS Neutrophils 3.2 10^3/ul (1.5-7.7); ABS Nucleated RBC 0 10^3/ul; Eosinophil % 2.8 % (0-6); Hematocrit 38 % (35-47); Hemoglobin 13.2 g/dl (12.0-16.0); Lymphocyte % 32.8 % (25-47); Mean Corpuscular HGB Conc 35 g/dl (31-36); Mean Corpuscular Hemoglobin 30 pg (27-31); Mean Corpuscular Volume 87 fL (80-97); Mean Platelet Volume 7.4 um3 (7.4-10.4); Nucleated Red Blood Cells % 0.1; Platelet Count 267 10^3/ul (150-450); Red Blood Count 4.37 10^6/ul (4.0-5.4); Red Cell Distribution Width 13 % (10.5-15); White Blood Count 5.8 10^3/ul (3.5-10.8)
[2017-06-28 07:30] LABS: EGFR Non-African American 86.6 (>60)
[2017-06-28] MEDS: cefTRIAXone VIAL(*) 2,000 MG in NS 0.9% 100 ML* 100 ML IVPB SCH (08:50)
[2017-06-28] MEDS: NS 0.9% 1000 ML* 1,000 ML IV SCH (08:50)
[2017-06-28] MEDS: Docusate CAP* 100 MG PO SCH (08:50)
[2017-06-28 12:17] VITALS: BP 145/77
--- NOTE | 2017-06-28 12:55 | DS ---
CC: Dr. Arango. * DISCHARGE SUMMARY: DATE OF ADMISSION: 06/25/17. DATE OF DISCHARGE: 06/28/17. PRIMARY CARE PROVIDER: Dr. Arango. PRINCIPAL DIAGNOSIS: Haemophilus influenzae meningitis. SECONDARY DIAGNOSIS: Hypothyroidism. DISCHARGE MEDICATIONS: 1. Synthroid 100 mcg p.o. daily. 2. Ceftriaxone 2 g IV q. 12 hours x7 doses. 3. Tylenol as needed. HOSPITAL COURSE: Ms. Harry is a 67-year-old female who presented to the emergency room on 06/24/17 with complaints of headache and fever. Approximately 10 days prior, she developed sore throat and yellow/green nasal discharge for which she took Keflex 250 mg 4 times daily. She had gradual worsening with onset on Tuesday prior to admission of malaise and fatigue. Tuesday, she began having headache and neck pain. She then had fevers, chills , nausea and dry heaves. She underwent a lumbar puncture in the emergency room which revealed a white blood cell count of greater than 1000 and a low glucose of 33. The patient's CSF ultimately grew Haemophilus influenza as did blood cultures x2. The patient was seen in consultation by Dr. Crane who recommended increasing ceftriaxone to twice daily dosing. When the result came back as Haemophilus influenza, the dose was increased from 1 g twice daily to 2 g twice daily. A midline was placed. At this point, the patient is felt to be stable for discharge home. She has been afebrile since 06/25/17. Her vital signs are stable. Her white blood cell count is normal. The patient has 7 more doses of ceftriaxone to complete. The patient feels very comfortable, utilizing the midline at home, administering her own antibiotics. On the day of discharge, the patient is awake, alert and oriented, sitting up in bed, in no acute distress. Temperature is 98.3, blood pressure is 140/79. Cardiac exam reveals a normal S1, S2 with a regular rate and rhythm. I do not appreciate any murmurs. Pulmonary exam reveals clear lungs bilaterally. Abdomen is soft, nontender, nondistended. The patient does complain of intermittent headache but most times she does not have headache. FOLLOWUP CONCERNS: The patient is being discharged home today 06/28/17. ACTIVITY LEVEL: As tolerated. DIET: Regular. CONDITION ON DISCHARGE: Stable. TIME SPENT: 35 minutes was spent discharging this patient. [id number]/[facility] #: [id number] MTDD
== END 2017-06-28 12:20 | disposition home or self-care (01) | DRG 96 ==
LOC: ED 15:43 → MED 06-25 00:25
PROVIDERS: ADMIT Hospitalist; ATTEND Hospitalist
PROC: 009U3ZX Drainage of Spinal Canal, Percutaneous Approach, Diagnostic (ICD-10-PCS; principal; 2017-06-25)
DX: G00.0 Hemophilus meningitis (principal); E03.9 Hypothyroidism, unspecified; Z96.651 Presence of right artificial knee joint; K21.9 Gastro-esophageal reflux disease without esophagitis; G47.00 Insomnia, unspecified; Z85.850 Personal history of malignant neoplasm of thyroid; Z79.1 Long term (current) use of non-steroidal anti-inflammatories (NSAID); Z79.899 Other long term (current) drug therapy; Z88.0 Allergy status to penicillin
CPT/HCPCS: 36415; 70450; 80048; 80053; 80202; 82945; 83605; 83735; 84157; 84443; 85025; 86140; 86618; 87040; 87070; 87077; 87185; 87205; 87502; 87798; 89051; 99284; A9270-GY; G8978-GP-CH; G8979-GP-CH; G8980-GP-CH; J0133; J0696; J3370